=== PATIENT | male | born 1965 | race Caucasian/White ===

== ENCOUNTER 2020-06-29 01:59 | Emergency (ER) | payer OTHER ==
[~2020-06-29] VITALS: Ht 172.7 cm; Wt 79.4 kg
[2020-06-29] MEDS ORDERED: REMERON15 MG PO ×2 (02:15→02:16)
[2020-06-29] MEDS ORDERED: SYNTHROID75 MCG PO (02:17)
[2020-06-29] MEDS ORDERED: MOBIC15 MG PO (02:17)
[2020-06-29] MEDS ORDERED: EZALLOR SPRINKL10 MG PO (02:18)
[2020-06-29] MEDS ORDERED: FLOMAX0.4 MG PO (04:05)
[2020-06-29] MEDS ORDERED: ONDANSETRON ODT4 MG SL (04:05)
[2020-06-29] MEDS ORDERED: NORCO 5-325 TA1 EACH PO (04:05)
== END 2020-06-29 04:18 | disposition home or self-care (01) ==
LOC: ED 01:59
DX: N13.2 Hydronephrosis with renal and ureteral calculous obstruction (principal); Z87.442 Personal history of urinary calculi; Z79.899 Other long term (current) drug therapy
CPT/HCPCS: 74176; 81001; 87088; 96374; 99284-25; J1170; J1885